=== PATIENT | female | born 1980 ===

== ENCOUNTER → 2018-07-13 16:29 | Outpatient (CLI) | payer OTHER, SELFPAY ==
--- NOTE | 2018-07-13 | DI.MRI.S_ITS ---
PROCEDURE: MR HEAD/BRAIN WO CON INDICATIONS: HEADACHE TECHNIQUE: Noncontrast axial T1 spin echo, axial T2 fast spin echo, sagittal and axial FLAIR, coronal T2 fast spin echo, axial gradient echo, axial diffusion and ADC through the brain. COMPARISON: None. FINDINGS: Image quality: Excellent. CSF Spaces: Basal cisterns are patent. No extra-axial fluid collections. Ventricles are normal in size and shape. Brain: No intracranial masses or hemorrhage. Zepeda/white matter interface is normal. Brainstem appears normal. Diffusion-weighted images demonstrate no acute ischemic insult. No chronic ischemic insults. Normal intravascular flow voids are present. Skull and face: Calvarium has normal marrow signal. Orbits appear normal. Sinuses: No mucosal thickening is identified involving the ethmoid air cells and maxillary sinuses. No air-fluid levels are identified. Immediate postoperative changes of the ethmoid air cells. Otherwise, the imaged paranasal sinuses and mastoid air cells are clear. IMPRESSION: 1. No acute intracranial hemorrhage or ischemia. 2. No focal parenchymal abnormalities of the brain are evident. 3. Mild paranasal sinus disease. Dictated by: Edin Peterson M.D. on 07/13/2018 at 16:38 Approved by: Edin Peterson M.D. on 07/13/2018 at 16:40
== END ==
PROVIDERS: Visit Provider Internal Medicine
DX: R51 Headache (principal); J32.8 Other chronic sinusitis
CPT/HCPCS: 70551

== ENCOUNTER → 2019-05-13 08:06 | Outpatient (CLI) | payer OTHER, SELFPAY ==
--- NOTE | 2019-05-13 | DI.MRI.S_ITS ---
PROCEDURE: MR CERVICAL SPINE WO CON INDICATIONS: CERVICALGIA TECHNIQUE: Noncontrast sagittal T1 spin echo and T2 fast spin echo, sagittal STIR, foraminal oblique sagittal T2 fast spin echo, and axial gradient echo or T2 fast spin echo through the cervical spine. COMPARISON: None. FINDINGS: Image quality: Excellent. Alignment and Curvature: There is loss of normal cervical lordosis. There is mild kyphosis at C4-C6. Minimal reactive signal within the endplates adjacent to the C5-C6 intervertebral disc. Bone Marrow: Marrow demonstrates normal overall signal. Spinal Cord: Visualized spinal cord has normal size and signal. No cerebellar tonsillar herniation. Paraspinous Soft Tissues: No paravertebral masses. Prevertebral soft tissues are normal in thickness. C2-C3: Normal appearance. C3-C4: Mild disc desiccation. No significant canal, neuroforaminal stenosis. C4-C5: Congenital canal stenosis. Mild disc height loss and desiccation. Moderate diffuse disc bulge. Mild bilateral facet and uncovertebral hypertrophy. There is moderate to severe canal stenosis. Mild cord flattening. Moderate right and severe left foraminal stenosis. Compression of the left C5 nerve root. C5-C6: Congenital canal stenosis. Moderate disc height loss and desiccation. Moderate diffuse disc bulge. Small superimposed central extrusion. Mild facet and uncovertebral hypertrophy bilaterally. Severe canal stenosis. Mild cord flattening. Mild bilateral foraminal stenosis. C6-C7: Mild disc height loss and desiccation. Mild diffuse disc bulge. Congenital canal stenosis. Mild facet and uncovertebral hypertrophy bilaterally. Moderate canal stenosis. Mild bilateral foraminal stenosis. C7-T1: Normal appearance. IMPRESSION: 1. Diffuse congenital canal stenosis with superimposed disc and facet disease, as well as uncovertebral hypertrophy. 2. Multilevel canal stenoses, worst at C4-C5 and C5-C6, where there is mild cord flattening present. 3. Multilevel foraminal stenoses, worst at C4-C5 on the left where there is associated intraforaminal nerve root flattening. Recommend correlation with clinical symptoms to ascertain relevance of this finding. Dictated by: Lynda Michael M.D. on 05/13/2019 at 11:12 Approved by: Lynda Michael M.D. on 05/13/2019 at 11:28
== END ==
PROVIDERS: Visit Provider Physical Medicine & Rehabilitation Pain Medicine
DX: M48.02 Spinal stenosis, cervical region (principal); M50.221 Other cervical disc displacement at C4-C5 level
CPT/HCPCS: 72141